=== PATIENT | male | born 2000 | race Two or more races ===

== ENCOUNTER 2023-07-17 18:28 | Emergency (ER) | payer OTHER ==
[2023-07-17 18:48] VITALS: O2SAT 100
[2023-07-17] MEDS ORDERED: HYDROcod/ACETAM 5/325 MG TABLET PO STA (20:31)
[2023-07-17] MEDS ORDERED: KETOROLAC 60 MG/2 ML VIAL IM STA (20:31)
[2023-07-17] MEDS ORDERED: methocarbamoL 500 MG TABLET PO STA (20:31)
--- NOTE | 2023-07-17 20:37 | ED Physician Documentation ---
History of Present Illness - Stated complaint Stated Complaint: LOW BACK PX - Chief complaint Chief Complaint: Back Pain - History obtained from History obtained from: Patient - History of Present Illness Timing: Today Pain level max: 8 Pain level now: 8 - Additonal information Additional information: Patient is a 22-year-old male who presents to the emergency department with low back pain. He states it started after lifting heavy objects at work today. Initially did not have much pain, but did feel like the back was "tight". He states that he was doing stretching and when he got back up he felt a sharp pain in his back and the back pain has persisted. No IVDA. no fevers. no chills. no loss of bowel or bladder control. no numbness or tingling. no abdominal or chest pain. Patient is [employer] Review of Systems Constitutional: denies: Fever, Chills Throat: denies: Sore throat Cardiac: denies: Chest pain / pressure, Palpitations Respiratory: denies: Cough GI: denies: Vomiting, Diarrhea Skin: denies: Rash Musculoskeletal: denies: Neck pain, Back pain Neurologic: denies: Headache PD PAST MEDICAL HISTORY - Past Medical History Past Medical History: No - Past Surgical History Past Surgical History: No - Present Medications Home Medications: Ambulatory Orders Medication Instructions Recorded Confirmed HYDROcod/ACETAM 5/325 [[place] 5/325] 1 - 2 ea PO Q6H PRN #14 tablet 07/17/23 Ibuprofen [Motrin] 800 mg PO Q8H PRN #30 tablet 07/17/23 methocarbamoL [Robaxin] 500 mg PO Q6H PRN #20 tablet 07/17/23 methylPREDNISolone [Medrol] 4 mg PO DAILY #1 tab 07/17/23 - Allergies Allergies/Adverse Reactions: Allergies Allergy/AdvReac Type Severity Reaction Status Date / Time No Known Drug Allergies Allergy Verified 07/17/23 18:42 - Social History Does the pt smoke?: No Smoking Status: Never smoker Does the pt drink ETOH?: No Does the pt have substance abuse?: No - Immunizations Immunizations are current?: Yes - POLST Patient has POLST: No PD ED PE NORMAL - Vitals Vital signs reviewed: Yes - General General: Alert and oriented X 3, No acute distress - HEENT HEENT: Moist mucous membranes - Neck Neck: Supple, no meningeal sign - Cardiac Cardiac: RRR, Strong equal pulses - Respiratory Respiratory: No respiratory distress, Clear bilaterally - Abdomen Abdomen: Soft, Non tender, Non distended - Back Back: No spinal TTP, Other (no midline TTP or percussion. Paraspinal spasm B low lumbar. ) - Derm Derm: Warm and dry - Extremities Extremities: No edema, Other (Normal bilateral lower extremity patellar and ankle jerk reflexes. Normal great toe extension bilaterally. no saddle anesthesia) - Neuro Neuro: Alert and oriented X 3 - Psych Psych: Normal mood, Normal affect Results - Vitals Vitals: Vital Signs - 24 hr 07/17/23 20:49 Temperature 36.9 C Heart Rate 58 L Respiratory 16 Rate Blood Pressure 145/64 H O2 Saturation 100 Oxygen O2 Source Room air PD Medical Decision Making - ED course Complexity details: re-evaluated patient, considered differential, d/w patient ED course: Patient with acute back spasm. No indication for emergent imaging. No evidence of cauda equina, epidural abscess. No evidence of fracture. No focal neurological deficits. Pain improved with Toradol, hydrocodone, and Robaxin. No saddle anesthesia. No red flags. We will place on medication for home and [place]Patient counseled regarding signs and symptoms for which I believe an urgent re-evaluation would be necessary. Patient with good understanding of and agreement to plan and is comfortable going home at this time. This document was made in part using voice recognition software. While efforts are made to proofread this document, sound alike and grammatical errors may occur. Departure - Departure Disposition: 01 Home, Self Care Clinical Impression: Back muscle spasm Condition: Good Instructions: ED Low Back Pain Injury Follow-Up: your,doctor in 1 week [Other] Prescriptions: methylPREDNISolone [Medrol] 4 mg PO DAILY #1 tab Ibuprofen [Motrin] 800 mg PO Q8H PRN #30 tablet PRN Reason: PAIN &/OR FEVER HYDROcod/ACETAM 5/325 [[place] 5/325] 1 - 2 ea PO Q6H PRN #14 tablet PRN Reason: Pain methocarbamoL [Robaxin] 500 mg PO Q6H PRN #20 tablet PRN Reason: muscle spasm Comments: Your prescriptions were sent to [facility] in [place]. Please follow-up with your doctor for further care. Please return if you worsen. This should improve over the next few days. I am prescribing a short course of narcotic pain medication for you. These are potentially dangerous and addictive medications that should be used carefully. These medications may constipate you. Take an [id number] stool softener (docusate) twice daily with plenty of water while taking these medications. If you go 24 hours without a bowel movement, take [id number] miralax, per package instructions. Do not drink or drive while taking these medications. If you received narcotic or sedating medications while in the emergency department, do not drive for 24 hours. Store this medication in a safe, secure place and out of reach of children. It is a violation of federal law to give or sell this medication to another person or to use in a manner other than prescribed. The ED will not refill narcotic prescriptions, including prescriptions lost or stolen. To dispose of unwanted medications: 1. [facility] at [address] in [place] has a medication drop box. They accept prescription medications (in pill form) Saturday through Saturday 9:00 a.m. to 5:00 p.m. 2. The [facility] [employer] accepts prescription medications (in pill form only) for disposal year round. Call for more information. 3. Contact the [facility] for the next [facility] sponsored prescription drug collection event. , [phone], or [phone]; Forms: Activity restrictions Discharge Date/Time: 07/17/23 21:26
[2023-07-17 20:53] VITALS: BP 145/64
== END 2023-07-17 21:26 | disposition home or self-care (01) ==
LOC: ED 18:28
DX: M62.830 Muscle spasm of back (principal)
CPT/HCPCS: 96372; 99283; A9270